=== PATIENT | male | born 1950 | race Caucasian/White ===

== ENCOUNTER 2021-06-06 22:37 | Observation (INO) | payer MEDICARE, OTHER ==
[~2021-06-06] VITALS: Ht 182.9 cm; Wt 109.4 kg
--- NOTE | 2021-06-07 01:47 | PHYS DOC ---
Past History Past Medical History: Arrhythmia, Hypertension Past Surgical History: No Surgical History Alcohol Use: None General Adult EDM: Chief Complaint: SHORTNESS OF BREATH HPI: HPI: ".. I ve been short of breath.. " ,," This all started.back on ..I was getting short of breath... my feet swollen.. I seen Dr. Ennis.. she said my heart was messing beats.. and I got a murmur.. but she going to have me see a Clinical Sociologist this coming week or so..but I got a lot more short of breath..and now I can't lay down.. 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 Patient at that time noticed some increased shortness of breath and edema in his feet to the point that he most could not put on his shoes. Patient patient currently working as a computer field technician at [employer]. Patient states he has had intermittent episodes of shortness of breath since April , but tonight he was unable to sleep because he could not lay flat. Patient had follow-up with Dr. Ennis and she had scheduling for an outpatient cardiology consult. Patient stated that she told him to go to the emergency room if he had any further symptoms or exacerbation of his dyspnea.. Patient has not had previous episodes of CHF. He has had a history of hypertension. Patient does at times drink heavily.. Patient has never had alcohol withdrawal syndrome and has been able to go weeks without a drink.. There is a family history of alcohol abuse, hypertension and MIs. Patient has completed COVID vaccination x3- Moderna. Has completed flu vaccination this season. Patient denies any history of coagulopathy with him or family members. No recent travel outside the [place] area. No severe ill contacts. No history immunosuppression. Review of Systems: Review of Systems: Constitutional: Denies fever or chills Eyes: Denies change in visual acuity HENT: Denies nasal congestion or sore throat Respiratory: Complains of a nonproductive cough and shortness of breath Cardiovascular: Complains of irregular heart rate GI: Denies abdominal pain, nausea, vomiting, bloody stools or diarrhea : Denies dysuria Musculoskeletal: Denies back pain or joint pain Integument: Denies rash Neurologic: Denies headache, focal weakness or sensory changes Endocrine: Denies polyuria or polydipsia Lymphatic: Denies swollen glands Psychiatric: Denies depression or anxiety Family History: Family History: Alcohol abuse, hypertension, MIs Current Medications: Current Meds: See nursing for home meds Allergies: Allergies: Allergies Coded Allergies Type Severity Reaction Last Updated Verified lisinopril Allergy Intermediate 06/07/21 Yes Physical Exam: PE: Constitutional: Moderate acute distress, non-toxic appearance. [] HENT: Normocephalic, atraumatic, bilateral external ears normal, oropharynx moist, no oral exudates, nose normal. [] Eyes: PERRLA, EOMI, conjunctiva normal, no discharge. [] Neck: Normal range of motion, no tenderness, supple, no stridor. JVD in the sitting position Cardiovascular: Irregular heart rate, tachycardia, bedside monitor shows frequent PVCs with a sinus tachycardia. Lungs & Thorax: Bilateral breath sounds equal apex with crackles throughout on auscultation [] PMI to the left. Murmur Abdomen: Bowel sounds decreased, soft, no tenderness, no masses, no pulsatile masses. [] Skin: Warm, dry, no erythema, no rash. [] Back: No tenderness, no CVA tenderness. [] Extremities: No tenderness, no cyanosis, no clubbing, ROM intact, mild ankle and foot edema. [] No cording. Neurologic: Alert and oriented X 3, moves all extremities on request, no focal deficits noted. [] Psychologic: Affect anxious, judgement normal, mood normal. [] Current Patient Data: Vital Signs: Vital Signs Date Time Temp Pulse Resp B/P (MAP) Pulse Ox O2 Delivery O2 Flow Rate FiO2 06/07/21 01:03 98.2 76 16 157/98 (644) 97 EKG: EKG: My interpretation EKG shows a sinus tachycardia 105 bpm. Occasional PVCs. Fascicular block. Bundle branch block. Abnormal EKG. Has a ventricular strain pattern. Time of EKG is 23 hours and 22 minutes [] Radiology/Procedures: Radiology/Procedures: [][address] [address] IMAGING REPORT Signed PATIENT: SHIREEN OSBORNE AACCOUNT: [id number] : 1950 LOCATION: ER AGE: 71 SEX: M EXAM STATUS: REG ER ORD. PHYSICIAN: MALCOLM CALLAHAN MD REASON: Dyspnea PROCEDURE: PORTABLE CHEST 1V XR CHEST 1V History: Reason: Dyspnea / Spl. Instructions: / History: Comparison: None. Findings: Mild multifocal ill-defined opacities. No pleural effusion. No pneumothorax. Portable technique accentuates cardiac size. Impression: 1. Mild multifocal ill-defined opacities, can be seen with pneumonia including viral pneumonia. Electronically signed by: Demarcus Burns DO (06/07/2021 2:46 AM) [facility] DICTATED AND SIGNED BY: DEMARCUS BURNS DO DATE: 06/07/21 0245 CC: MALCOLM CALLAHAN MD; MULUGETA ENNIS ~MTH0 0 Heart Score: C/O Chest Pain: Yes HEART Score for Chest Pain: HEART Score for Chest Pain Response (Comments) Value History Highly Suspicious [address] Depression 2 Age > 65 2 Risk Factors 1 or 2 Risk Factors 1 Troponin < Normal Limit 0 Total 7 Risk Factors: Risk Factors: DM, Current or recent (<one month) smoker, HTN, HLP, family history of CAD, obesity. Risk Scores: Score 0 - 3: 2.5% MACE over next 6 weeks - Discharge Home Score 4 - 6: 20.3% MACE over next 6 weeks - Admit for Clinical Observation Score 7 - 10: 72.7% MACE over next 6 weeks - Early Invasive Strategies Course & Med Decision Making: Course & Med Decision Making Pertinent Labs and Imaging studies reviewed. (See chart for details) Discussed presentation, testing and treatment plan with Dr. Phillips. Plan admit with cardiology consult. Attempts for transfer other hospitals-currently no hospitals are will accept patients in transfer because of holding patients in ED. Critical Care 30 min. Impression: 1. CHF-BNP 3937 2. Hyponatremia 132 3. Hyperkalemia- potassium 5.2 4. Elevated D-dimer 1.39 5. Mild renal insufficiency creatinine 1.5 6. Hypomagnesia 1.6 7. Dysrhythmia-frequent PVCs 8. History of episodic alcohol abuse Endorsed to Dr. Jin pending placement and hospital bed at shift change. Pt. endorsed to Dr. Jin pending transfer to [facility]. [] Dragon Disclaimer: Dragon Disclaimer: This electronic medical record was generated, in whole or in part, using a voice recognition dictation system. Departure Departure: Referrals: MULUGETA ENNIS (PCP) [facility] Disclaimer This chart was dictated in whole or in part using Voice Recognition software in a busy, high-work load, and often noisy Emergency Department environment. It may contain unintended and wholly unrecognized errors or omissions. MALCOLM CALLAHAN MD Jun 07, 2021 01:47
[2021-06-07] MEDS ORDERED: IV RINGERS SOLUTION,LACTATED 1,000 ML IV SCH (02:30)
--- NOTE | 2021-06-07 02:49 | RAD ---
XR CHEST 1V History: Reason: Dyspnea / Spl. Instructions: / History: Comparison: None. Findings: Mild multifocal ill-defined opacities. No pleural effusion. No pneumothorax. Portable technique accen tuates cardiac size. Impression: 1. Mild multifocal ill-defined opacities, can be seen with pneumonia including viral pneumonia. Electronically signed by: Demarcus Burns DO (06/07/2021 2:46 AM) [facility] [place]
[2021-06-07 02:55] LABS: BASO % 0 % (0-3); CALCIUM 9.1 mg/dL (8.5-10.1); CREATININE 1.5 mg/dL (0.7-1.3); EOS # 0.1 x10^3/uL (0.0-0.7); EOS % 1 % (0-3); GFR 46.1; HEMATOCRIT 46.9 % (39.0-53.0); HEMOGLOBIN 15.5 g/dL (13.0-17.5); LYMPH % 10 % (24-48); MEAN CORPUSCULAR HEMOGLOBIN 32 pg (25-35); MEAN CORPUSCULAR HGB CONC 33 g/dL (31-37); MEAN CORPUSCULAR VOLUME 96 fL (79-100); MONO # 0.4 x10^3/uL (0.0-1.1); MONO % 4 % (0-9); NEUT # 8.4 x10^3uL (1.8-7.7); NEUT % 84 % (31-73); PLATELET COUNT 175 x10^3/uL (140-400); POTASSIUM 5.2 mmol/L (3.5-5.1); RED BLOOD COUNT 4.89 x10^6/uL (4.30-5.70); RED CELL DISTRIBUTION WIDTH 16.2 % (11.5-14.5); WHITE BLOOD COUNT 9.9 x10^3/uL (4.0-11.0)
[2021-06-07 03:07] LABS: ALBUMIN 4.3 g/dL (3.4-5.0); DIRECT BILIRUBIN 1.1 mg/dL (0.0-0.2); MAGNESIUM 1.6 mg/dL (1.8-2.4); TOTAL BILIRUBIN 2.2 mg/dL (0.2-1.0); TOTAL PROTEIN 6.8 g/dL (6.4-8.2)
[2021-06-07 03:11] LABS: BARBITURATES NEG (NEG); BENZODIAZEPINES NEG (NEG); CANNABINOIDS NEG (NEG); COCAINE NEG (NEG); METHADONE NEG (NEG); OPIATES NEG (NEG); PHENCYCLIDINE NEG (NEG)
[2021-06-07 03:12] LABS: AMPHETAMINE/METHAMPHETAMINE NEG (NEG)
[2021-06-07 03:23] LABS: BACTERIA,URINE FEW /HPF (0-FEW); BILIRUBIN,URINE NEG (NEG); CLARITY,URINE CLEAR; COLOR,URINE YELLOW; GLUCOSE,URINE NEG (NEG); NITRITE,URINE NEG (NEG); RBC,URINE 0 /HPF (0-2); SQUAMOUS EPITHELIAL CELL,UR OCC /LPF; WBC,URINE 0 /HPF (0-4)
[2021-06-07] MEDS ORDERED: FUROSEMIDE 40 MG/4 ML VIAL IVP ONE ×2 (05:30→06:00)
[2021-06-07] MEDS ORDERED: ENOXAPARIN ** NOTE DOSE ** SYRINGE SQ ONE (06:00)
[2021-06-07] MEDS ORDERED: NITROGLYCERIN OINT 1 GM PACKET. TP ONE (06:00)
[2021-06-07] MEDS ORDERED: MAGNESIUM SULFATE 2GM 50 ML IV ONE (06:00)
[2021-06-07] MEDS ORDERED: ASPIRIN 325 MG TABLET PO ONE (06:00)
[2021-06-07] MEDS ORDERED: ONDANSETRON PF 4 MG/2 ML VIAL. IVP PRN (06:45)
[2021-06-07] MEDS ORDERED: ACETAMINOPHEN 325 MG TABLET PO PRN (06:45)
[2021-06-07] MEDS ORDERED: ANTI-COAG MONITOR BY PHARMACY. MC PRN (07:00)
[2021-06-07 07:40] LABS: INFLUENZA A PATIENT NEGATIVE (NEGATIVE); INFLUENZA B PATIENT NEGATIVE (NEGATIVE)
[2021-06-07] MEDS: ASPIRIN CHEWABLE 81 MG TABLET. PO SCH (09:15)
[2021-06-07] MEDS: NITROGLYCERIN OINT 1 GM PACKET. TP SCH ×3 (09:17→20:55)
[2021-06-07 14:36] VITALS: BP 125/83
--- NOTE | 2021-06-07 14:36 | NUR ---
PT ARRIVED TO ROOM 115 [facility]IA [facility]. PT UP AD DANIELLE. PT DOES NOT COMPLAIN OF ANY PAIN AT THIS TIME. PT STATES HIS SYMPTOMS STARTED AROUND 05/21/21. PT STATES THAT HE SEES MULUGETA MCDONALD. THIS RN CONTACTED HER OFFICE TO GET A CURRENT MED LIST. THIS RN SUGGESTED TO PT THAT CPAP BE BROUGHT UP IF AVAILABLE BY .
[2021-06-07] MEDS ORDERED: PANT40TA3 PO (16:50)
[2021-06-07] MEDS ORDERED: METF10007 PO (16:50)
[2021-06-07] MEDS ORDERED: MELA5TAB20 PO (16:50)
[2021-06-07] MEDS ORDERED: ATOR40TA59 PO (16:50)
[2021-06-07] MEDS ORDERED: TRAZ-120 PO (16:50)
[2021-06-07] MEDS ORDERED: LORA-52 PO (16:50)
[2021-06-07] MEDS ORDERED: FLUT50DI IH (16:50)
[2021-06-07] MEDS ORDERED: VITA100022 PO (16:50)
[2021-06-07] MEDS ORDERED: AZEL137S3 NS (16:50)
[2021-06-07] MEDS ORDERED: FLUT1DIS3 IH (16:50)
[2021-06-07] MEDS ORDERED: ALLO300T PO (16:50)
[2021-06-07] MEDS ORDERED: BENZ200C47 PO (16:50)
[2021-06-07] MEDS ORDERED: FINA5TAB4 PO (16:50)
[2021-06-07] MEDS ORDERED: MONT10TA80 PO (16:50)
[2021-06-07] MEDS ORDERED: TELM80TA PO (16:50)
[2021-06-07] MEDS ORDERED: OMEG1CAP50 PO (16:50)
[2021-06-07] MEDS: FUROSEMIDE 40 MG/4 ML VIAL IVP SCH (17:10)
--- NOTE | 2021-06-07 17:55 | NUR ---
PLAN IS TO D/C HOME TOMORROW. PT SEEN BY CARDIOLOGY. WILL CONTINUE TO DIURESE. 1500ML FLUID RESTRICTION.
[2021-06-07] MEDS ORDERED: BENZONATATE 100 MG CAPSULE. PO PRN (18:15)
[2021-06-07 19:39] VITALS: BP 104/66
[2021-06-07] MEDS: BUDESONIDE 0.5 MG/2 ML NEBU NEB SCH (20:00)
[2021-06-07] MEDS: ALBUTEROL SULFATE 2.5 MG/3 ML NEBU. NEB SCH (20:00)
[2021-06-07 20:54] VITALS: BP 129/74
[2021-06-07] MEDS: AZELASTINE NASAL SPRAY 30ML BOTTLE. NS SCH (20:59)
[2021-06-07] MEDS ORDERED: ENOXAPARIN ** NOTE DOSE ** SYRINGE SQ SCH (21:00)
[2021-06-07] MEDS ORDERED: traZODone 50 MG TABLET. PO SCH (21:00)
[2021-06-07] MEDS ORDERED: ATORVASTATIN CALCIUM 20 MG TABLET PO SCH (21:00)
[2021-06-07] MEDS ORDERED: MONTELUKAST 10 MG TABLET. PO SCH (21:00)
[2021-06-07] MEDS ORDERED: ENOXAPARIN 40 MG/0.4 ML SYRINGE. SQ SCH (21:00)
[2021-06-07] MEDS ORDERED: NON FORMULARY ITEM (Fluticasone/Salmeterol (Advair 250-50 Diskus) 1 PUFF) IH SCH (21:00)
[2021-06-07] MEDS ORDERED: MELATONIN 3 MG TABLET PO SCH (21:00)
--- NOTE | 2021-06-07 22:56 | HP ---
DATE OF SERVICE: 06/07/2021 ADMIT DATE: 06/07/2021 HOSPITAL COURSE: This is a 71-year-old male patient who presented to the Emergency Room of [facility] with a complaint of shortness of breath, orthopnea, paroxysmal nocturnal dyspnea as well as cough. He has also swollen feet. All this started since 05/21/2021. He has been using his inhalers without really much improvement. He saw his primary care physician, Dr. Ennis, who made an arrangement for him to be seen by a engine cleaner, but has been postponed; and therefore, he decided to come to the Emergency Room for further evaluation and treatment. According to him, he has been unable to lie flat and has to sit up. Sometimes, he wakes up at night because of shortness of breath and vomit. He sits up, his symptoms improve. His legs are so swollen that he could not put on his shoes. He was extensively investigated in the Emergency Room and has had lab work and imaging studies. His lab work showed he has mild hyponatremia and mild hyperkalemia and slightly impaired kidney function and his total bilirubin and alkaline phosphatase are slightly elevated. His beta natriuretic peptide was elevated at 3932, has a troponin I, high sensitivity were 26, second one was 21, and the third one was 23. His D-dimer was elevated at 1.39, however prothrombin time and INR slightly elevated, APTT was normal. Urinalysis was essentially unremarkable and toxic screen was negative, and the patient was admitted with congestive heart failure, hyponatremia, hyperkalemia, elevated D-dimer, mild renal insufficiency with a creatinine of 1.5, hypomagnesemia. He was treated with IV Lasix and was also started on Lovenox, and his will bring all his medications to be resumed. PAST MEDICAL HISTORY: Significant for bronchial asthma, diagnosed in [id number], hypertension, hyperlipidemia, fatty liver and emphysema as well as benign prostatic hypertrophy. PAST SURGICAL HISTORY: Significant for tonsillectomy. ALLERGIES: HE IS ALLERGIC TO LISINOPRIL HE DEVELOPS DRY COUGH. MEDICATIONS: To be brought by his . FAMILY HISTORY: He has 2 sisters, one older and one younger, both healthy. He has 2 younger brothers. One of them of liver cancer. His father at age of 75 because of emphysema. Mother at age of 85 with metastatic cancer with unknown primary. SOCIAL HISTORY: He is , has a son and a daughter. He smoked only when he was 11 years old. According to him, he drinks alcohol episodically and when he drinks, he drinks heavily. He drinks a bottle of rum though he was not specific on how often he drinks. 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 REVIEW OF SYSTEMS: As per history of present illness. On arrival to the Emergency Room, the patient was not really tachypneic. There was no pallor, jaundice, cyanosis. No lymphadenopathy, no thyromegaly. No jugular venous distention, but marked bilateral lower limb edema. PHYSICAL EXAMINATION: VITAL SIGNS: His heart rate was 76, blood pressure 157/98, temperature was 98.2, respiratory rate was 16 and oxygen saturation was 97%. HEAD, EYES, EARS, NOSE AND THROAT: Normocephalic, atraumatic. NECK: Supple. HEART: Normal first and second heart sounds. No gallop, rub or murmur. CHEST: Shows central trachea, equal bilateral chest expansion, air entry, vesicular breath sounds with crackles throughout on auscultation. No rhonchi. ABDOMEN: Distended, soft, nontender. NEUROLOGIC: He was alert, oriented x3, moves all extremities without difficulty with no obvious focal deficit. His affect, judgment and mood were normal. DIAGNOSTIC DATA: He has an EKG, which showed that he was in sinus tachycardia with a heart rate of 105 beats per minute, occasional PVCs, fascicular bundle-branch block; abnormal EKG with a ventricular strain pattern. LABORATORY DATA: His chemistry showed a serum sodium of 132, potassium 5.2, chloride 97, bicarbonate 22, anion gap of 13, BUN 22, creatinine 1.5. Estimated GFR was 46 mL per minute. His glucose was 118, calcium was 9.1, magnesium was 1.6. Total bilirubin and alkaline phosphatase slightly elevated. AST and ALT are normal. His CK was 97. First troponin was 26. Beta natriuretic peptide was 3932. Total protein was 6.8, albumin was 4.3 and lipase was 97. His white cell count was 9900, hemoglobin 15.5, hematocrit 46.9, MCV 96 and platelet count of 175,000 with a manual differential. Prothrombin time was 12.9, INR 1.2, APTT is 27 and D-dimer was 1.39. Urinalysis showed the urine was yellow, clear with a pH of 5.5, specific gravity 1.010. The urine was negative for protein, glucose, trace of blood, negative for nitrite and leukocyte esterase. His toxic screen was essentially negative and his coronavirus by PCR was not detectable and his influenza A and B were negative. IMAGING: His chest x-ray showed that the patient has mild multifocal ill-defined opacities, no pleural effusion, no pneumothorax, portable technique, cardiac size. ASSESSMENT AND PLAN: The patient was admitted with congestive heart failure, slightly elevated D-dimer, mild renal impairment with a creatinine of 1.5, hypomagnesemia and history of episodic alcohol abuse. My plan is to consult obviously a engine cleaner as already 3 sets of cardiac enzymes that ruled out acute myocardial infarction. I will repeat his labs again tomorrow. I will add also ammonia. His PT/INR is slightly elevated, although liver enzymes, AST, ALT are normal. RASHEL/TORY DR: Mihaela TID: [id number]
--- NOTE | 2021-06-07 23:00 | NUR ---
Patient has been pleasant, calm and denied pain when asked. He received a call from a family member in the early evening and has been sleeping since then, with his CPAP on. HS nitro-bid held r/t patients vital signs.
[2021-06-07 23:26] VITALS: BP 108/77
--- NOTE | 2021-06-08 03:45 | NUR ---
pt was not yet transfered to room at 191
--- NOTE | 2021-06-08 04:23 | EKG ---
[address] [address] Test Date: 2021-06-06 Test Time: 23:22:11 Pat Name: SHIREEN OSBORNE Department: Room: Gender: Air Conditioning Supervisor: Bahman : 1950 Requested By: MALCOLM CALLAHAN Order Number: [id number] Reading MD: Measurements Intervals Mu[place] Rate: 105 P: 64 AL: 84 QRS: -52 QRSD: 114 T: -1 QT: 364 QTc: 485 Interpretive Statements SINUS TACHYCARDIA VENTRICULAR PREMATURE COMPLEX(ES) ABNORMAL LEFT AXIS DEVIATION LEFT ANTERIOR FASCICULAR BLOCK INCOMPLETE RIGHT BUNDLE BRANCH BLOCK ST & T ABNORMALITY, CONSIDER INFERIOR ISCHEMIA OR LEFT VENTRICULAR STRAIN ABNORMAL ECG RI6.02 No previous ECG available for comparison
[2021-06-08] MEDS: FUROSEMIDE 40 MG/4 ML VIAL IVP SCH (05:35)
[2021-06-08 05:42] VITALS: BP 127/84
[2021-06-08] MEDS: ALBUTEROL SULFATE 2.5 MG/3 ML NEBU. NEB SCH (06:05)
[2021-06-08 06:29] LABS: BASO # 0.1 x10^3/uL (0.0-0.2); BASO % 1 % (0-3); EOS # 0.1 x10^3/uL (0.0-0.7); EOS % 2 % (0-3); HEMATOCRIT 45.8 % (39.0-53.0); HEMOGLOBIN 15.2 g/dL (13.0-17.5); LYMPH # 1.9 x10^3/uL (1.0-4.8); LYMPH % 22 % (24-48); MEAN CORPUSCULAR HEMOGLOBIN 32 pg (25-35); MEAN CORPUSCULAR HGB CONC 33 g/dL (31-37); MEAN CORPUSCULAR VOLUME 95 fL (79-100); MONO # 1.2 x10^3/uL (0.0-1.1); MONO % 13 % (0-9); NEUT # 5.5 x10^3uL (1.8-7.7); NEUT % 63 % (31-73); PLATELET COUNT 188 x10^3/uL (140-400); RED CELL DISTRIBUTION WIDTH 15.9 % (11.5-14.5); WHITE BLOOD COUNT 8.7 x10^3/uL (4.0-11.0)
[2021-06-08 07:09] LABS: ALBUMIN 4.1 g/dL (3.4-5.0); ALBUMIN/GLOBULIN RATIO 1.6 (1.0-1.7); CALCIUM 7.8 mg/dL (8.5-10.1); CREATININE 1.5 mg/dL (0.7-1.3); GFR 46.1; TOTAL BILIRUBIN 1.7 mg/dL (0.2-1.0); TOTAL PROTEIN 6.6 g/dL (6.4-8.2)
[2021-06-08] MEDS: AZELASTINE NASAL SPRAY 30ML BOTTLE. NS SCH (07:56)
[2021-06-08] MEDS: ASPIRIN CHEWABLE 81 MG TABLET. PO SCH (07:57)
[2021-06-08] MEDS: BUDESONIDE 0.5 MG/2 ML NEBU NEB SCH (07:58)
[2021-06-08] MEDS: NITROGLYCERIN OINT 1 GM PACKET. TP SCH (07:58)
[2021-06-08 08:00] VITALS: BP 127/84
[2021-06-08] MEDS ORDERED: metFORMIN 500 MG TABLET PO SCH (08:00)
[2021-06-08] MEDS ORDERED: VITAMIN E 1,000 UNIT CAPSULE. PO SCH (08:00)
[2021-06-08] MEDS ORDERED: CETIRIZINE HCL 10 MG TABLET PO SCH (09:00)
[2021-06-08] MEDS ORDERED: PANTOPRAZOLE 40 MG TABLET. PO SCH (09:00)
[2021-06-08] MEDS ORDERED: ALLOPURINOL 300 MG TABLET. PO SCH (09:00)
[2021-06-08] MEDS ORDERED: LOSARTAN 50 MG TABLET. PO SCH (09:00)
[2021-06-08] MEDS ORDERED: FLUTICASONE 50MCG/NASAL SPRAY 16GM BOTTLE. NS SCH (09:00)
[2021-06-08] MEDS ORDERED: OMEGA-3 FATTY ACIDS/FISH OIL 1,000 MG CAPSULE. PO SCH (09:00)
[2021-06-08] MEDS ORDERED: FINASTERIDE 5 MG TABLET. PO SCH (09:00)
[2021-06-08] MEDS ORDERED: FURO-68 PO (10:29)
[2021-06-08] MEDS ORDERED: POTA-112 PO (10:29)
--- NOTE | 2021-06-08 10:47 | NUR ---
Nursing note PT in bed, morning assessments done, medications administered per doctors orders. Breakfast served and PT ate 100% of meal. PT assessed by the doctor and discharge orders put in. PT discharge from the hospital, discharge papers signed by patient. Information on heart failure and medications he needs to take and continue taking given to the PT. Medication brought in from home by the PT, which was kept in the pharmacy handed over to the PT before discharge. PT stable, ambulated of the floor with the assistance of the nurse. PT picked up from up the hill by security and taken down hill to his car.
[2021-06-08 17:53] LABS: CHOLESTEROL/HDL RATIO 2.6
--- NOTE | 2021-06-08 23:39 | CONS ---
DATE OF CONSULTATION: 06/07/2021 LOCATION OF SERVICE: [facility] REASON FOR CONSULTATION: Heart failure. HISTORY OF PRESENT ILLNESS: The patient is a pleasant 71-year-old man who presented to the hospital at [facility] with complaints of shortness of breath and some paroxysmal nocturnal dyspnea. He also reported bilateral lower extremity edema over the last 2-3 weeks prior to admission. He does not recall any prior history of cardiovascular disease, but he was supposedly scheduled to go see a tunneller through his primary care physician. Since admission from the hospital, he has been doing well after diuresis. He currently denies any chest pain, dyspnea, orthopnea or PND. He was then admitted for overnight observation. In speaking with the patient prior to 3 weeks ago, he was doing fairly well. He denies any other specific issues. PAST MEDICAL HISTORY: Notable for asthma as well as hypertension and dyslipidemia. He has emphysema. ALLERGIES: LISINOPRIL AND THIS CAUSES COUGH. MEDICATIONS: Include losartan, fish oil, atorvastatin, aspirin and Lasix 40 mg p.o. b.i.d. REVIEW OF SYSTEMS: Negative for 10 out of 14 systems reviewed, unless otherwise mentioned above in HPI. SOCIAL HISTORY: The patient denies any alcohol, tobacco or illicit drug use. PHYSICAL EXAMINATION: VITAL SIGNS: Afebrile, heart rate 92, blood pressure 127/84, 96% on room air. GENERAL: He is alert and oriented, in no acute distress. HEAD AND NECK: Otherwise unremarkable. LUNGS: Clear to auscultation bilaterally. ABDOMEN: Soft, nontender, nondistended. EXTREMITIES: Notable for 2+ edema. DIAGNOSTIC STUDIES: Cardiac enzymes are negative x2. BNP is elevated at 3932. Creatinine is elevated at 1.5. Chest x-ray demonstrates a possible pneumonia versus edema. EKG is unremarkable for any acute ischemic pathology. IMPRESSION: 1. Acute on chronic presumed diastolic heart failure. 2. Hypertension. 3. Dyslipidemia. 4. Possible asthma. RECOMMENDATIONS: 1. The patient reports that he currently feels very much improved. He is off his BiPAP and has diuresed well. 2. Continue diuresis and plan for outpatient ischemic evaluation in the form of an echocardiogram and stress testing in the near future. We gave the patient our office information. He may contact us for continuity of care. Otherwise, he has followup set up to the [facility] in 1 week with a new tunneller through his primary care physician. Thank you for this consultation. CONSTANTINO DR: Teresa TID: [id number]
== END 2021-06-08 11:03 | disposition home or self-care (01) ==
LOC: ER 22:37 → INTOOBSV 06-07 06:45 → ER HOLD 06-07 06:45 → 1 SOUTH 06-07 12:52
PROVIDERS: ADMIT Internal Medicine; ATTEND Internal Medicine
DX: J43.9 Emphysema, unspecified (principal); Z20.822 Contact with and (suspected) exposure to COVID-19; I11.0 Hypertensive heart disease with heart failure; I50.33 Acute on chronic diastolic (congestive) heart failure; N28.9 Disorder of kidney and ureter, unspecified; E83.42 Hypomagnesemia; F10.129 Alcohol abuse with intoxication, unspecified; E78.5 Hyperlipidemia, unspecified; K76.0 Fatty (change of) liver, not elsewhere classified; I49.9 Cardiac arrhythmia, unspecified; I49.3 Ventricular premature depolarization; N40.0 Benign prostatic hyperplasia without lower urinary tract symptoms; E87.1 Hypo-osmolality and hyponatremia; E87.5 Hyperkalemia; R77.8 Other specified abnormalities of plasma proteins; Z87.891 Personal history of nicotine dependence; Z90.49 Acquired absence of other specified parts of digestive tract; Z79.899 Other long term (current) drug therapy; Z98.890 Other specified postprocedural states
CPT/HCPCS: 36415; 71045; 80048; 80053; 80061; 80076; 80307; 81001; 82550; 83690; 83735; 83880; 84443; 84484; 85025; 85379; 85610; 85730; 93005; 94640; 96365; 96366; 96372; 96375; 96376; 99291; G0378; J1650; J1940; J3475; J7120; J7613; U0003; G0379